=== PATIENT | female | born 1995 | race Caucasian/White ===

== ENCOUNTER 2021-03-02 21:18 | Outpatient (CLI) | payer OTHER ==
[2021-03-02] MEDS ORDERED: PRENATAL TABLE1 EAC1 PO (22:40)
[2021-03-02] MEDS ORDERED: FOLIC ACID20 MG (22:41)
[2021-03-03] MEDS ORDERED: CEFADROXIL500 MG PO (07:09)
== END 2021-03-03 12:34 | disposition home or self-care (01) ==
LOC: OBS/DEL 21:18
PROVIDERS: ATTEND Obstetrics & Gynecology
DX: O23.42 Unspecified infection of urinary tract in pregnancy, second trimester (principal); Z3A.26 26 weeks gestation of pregnancy

== ENCOUNTER 2021-05-26 22:25 | Inpatient (IN) | payer OTHER ==
[~2021-05-26] VITALS: Ht 160 cm; Wt 68.9 kg
[~2021-05-26 22:25] MED LIST: CEFADROXIL500 MG PO; FOLIC ACID20 MG; PRENATAL TABLE1 EAC1 PO
[2021-05-29] MEDS ORDERED: IBUPROFEN400 MG PO (13:20)
[2021-05-29] MEDS ORDERED: PREPLUS CA-FE1 EACH PO (13:20)
[2021-05-29] MEDS ORDERED: SENOKOT-S TABL1 EACH PO (13:20)
== END 2021-05-29 13:53 | disposition home or self-care (01) | DRG 807 ==
LOC: OB/GYN 22:25 → LDR 22:25 → OB/GYN 05-27 02:07
PROVIDERS: ADMIT Obstetrics & Gynecology; ATTEND Obstetrics & Gynecology
PROC: 10E0XZZ Delivery of Products of Conception, External Approach (ICD-10-PCS; principal; 2021-05-26)
PROC: 0HQ9XZZ Repair Perineum Skin, External Approach (ICD-10-PCS; 2021-05-26)
PROC: 4A1HXFZ Monitoring of Products of Conception, Cardiac Rhythm, External Approach (ICD-10-PCS; 2021-05-26)
DX: O70.0 First degree perineal laceration during delivery (principal); Z37.0 Single live birth; Z3A.39 39 weeks gestation of pregnancy; Z20.822 Contact with and (suspected) exposure to COVID-19

== ENCOUNTER 2021-10-19 11:08 | Emergency (ER) | payer OTHER ==
[~2021-10-19] VITALS: Ht 160 cm; Wt 56.7 kg
[~2021-10-19 11:08] MED LIST changes: +IBUPROFEN400 MG PO; +PREPLUS CA-FE1 EACH PO; +SENOKOT-S TABL1 EACH PO
[2021-10-19] MEDS ORDERED: VITAMIN B-225 MG PO (18:45)
== END 2021-10-19 19:17 | disposition home or self-care (01) ==
LOC: ER 11:08
DX: O21.0 Mild hyperemesis gravidarum (principal); E86.0 Dehydration; Z3A.01 Less than 8 weeks gestation of pregnancy

== ENCOUNTER 2022-04-30 02:44 | Outpatient (CLI) | payer OTHER ==
[~2022-04-30 02:44] MED LIST changes: +VITAMIN B-225 MG PO
== END 2022-04-30 09:21 | disposition home or self-care (01) ==
LOC: OBS/DEL 02:44
PROVIDERS: ATTEND Obstetrics & Gynecology
DX: O47.03 False labor before 37 completed weeks of gestation, third trimester (principal); Z3A.34 34 weeks gestation of pregnancy

== ENCOUNTER 2022-05-03 13:40 | Inpatient (IN) | payer OTHER ==
[~2022-05-03] VITALS: Ht 160 cm; Wt 59.4 kg
[2022-05-04] MEDS ORDERED: PROFERRIN-FORT1 EACH (14:48)
== END 2022-05-06 12:02 | disposition home or self-care (01) | DRG 833 ==
LOC: LDR 13:40 → OB/GYN 13:40
PROVIDERS: ADMIT Obstetrics & Gynecology; ATTEND Obstetrics & Gynecology
PROC: 4A1HXCZ Monitoring of Products of Conception, Cardiac Rate, External Approach (ICD-10-PCS; principal; 2022-05-03)
PROC: BY4FZZZ Ultrasonography of Third Trimester, Single Fetus (ICD-10-PCS; 2022-05-03)
PROC: BU4CZZZ Ultrasonography of Uterus and Ovaries (ICD-10-PCS; 2022-05-03)
DX: O60.03 Preterm labor without delivery, third trimester (principal); Z3A.34 34 weeks gestation of pregnancy; Z20.822 Contact with and (suspected) exposure to COVID-19

== ENCOUNTER 2022-06-05 08:08 | Inpatient (IN) | payer OTHER ==
[~2022-06-05] VITALS: Ht 160 cm; Wt 59.9 kg
[~2022-06-05 08:08] MED LIST changes: +PROFERRIN-FORT1 EACH
== END 2022-06-07 10:10 | disposition home or self-care (01) | DRG 807 ==
LOC: LDR 08:08 → OB/GYN 10:28
PROVIDERS: ADMIT Obstetrics & Gynecology; ATTEND Obstetrics & Gynecology
PROC: 10E0XZZ Delivery of Products of Conception, External Approach (ICD-10-PCS; principal; 2022-06-05)
PROC: 4A1HXCZ Monitoring of Products of Conception, Cardiac Rate, External Approach (ICD-10-PCS; 2022-06-05)
DX: O80 Encounter for full-term uncomplicated delivery (principal); Z37.0 Single live birth; Z3A.39 39 weeks gestation of pregnancy; Z20.822 Contact with and (suspected) exposure to COVID-19